=== PATIENT | female | born 1945 | race Caucasian/White ===

== ENCOUNTER 2019-06-23 11:42 | Emergency (ER) | payer MEDICARE, BC ==
[~2019-06-23] VITALS: Ht 152.4 cm; Wt 77.1 kg
[2019-06-23] MEDS ORDERED: ACETAMINOPHEN/CODEINE 300MG - 30MG TAB PO ONE (14:30)
--- NOTE | 2019-06-23 16:47 | Diagnostic Imaging Report ---
EXAMINATION: KNEE RIGHT 1-2 VIEWS INDICATION: Right knee pain COMPARISON: None FINDINGS: AP and lateral images of the right knee demonstrate no acute fracture or dislocation. Alignment is anatomic. Mild chondrocalcinosis. No substantial degenerative changes. No substantial joint effusion. IMPRESSION: No acute osseous injury. Signed by: Onur Monroy MD on 06/23/2019 4:44 PM
[2019-06-23 22:32] VITALS: BP 143/86
== END 2019-06-23 22:37 | disposition home or self-care (01) ==
LOC: ER 11:42
DX: S83.521A Sprain of posterior cruciate ligament of right knee, initial encounter (principal); X50.1XXA Overexertion from prolonged static or awkward postures, initial encounter; Y92.512 Supermarket, store or market as the place of occurrence of the external cause; I10 Essential (primary) hypertension
CPT/HCPCS: 99283